=== PATIENT | female | born 1970 | race Caucasian/White ===

== ENCOUNTER 2017-10-23 23:53 | Emergency (ER) | payer BC ==
[2017-10-24] MEDS ORDERED: Albuterol/Ipratropium 3.0-0.5 MG/3 ML Neb Soln NEB ONE ×2 (00:02→03:15)
[2017-10-24] MEDS ORDERED: Sodium Chloride 0.9% 10 ML Syringe FLUSH PRN ×2 (00:12→01:18)
--- NOTE | 2017-10-24 00:53 | EDM.PDOC ---
ED HPI GENERAL MEDICAL PROBLEM - General Chief Complaint: Respiratory Problem Stated Complaint: [facility] Time Seen by Provider: 10/24/17 00:00 Source of Information: Reports: Patient, EMS History Limitations: Reports: No Limitations - History of Present Illness INITIAL COMMENTS - FREE TEXT/NARRATIVE: The patient went to bed tonight at around 10pm. She developed a cough and shortness of breath. Before that for a few days she did have some congestion and slight cough. She got into a coughing fit and had shortness of breath and chest tightness. She called 911 and when EMS got there her oxygen saturations were low in the 80s. She was given an albuterol treatment. She denies fever but she has chills. She has no abdominal pain, nausea or vomiting. She has no lung problems such as asthma or COPD. She does not smoke. Onset: Sudden Duration: Minutes: Location: Reports: Chest Quality: Reports: Other (Tightness) Severity: Mild Improves with: Reports: None Worsens with: Reports: None Associated Symptoms: Reports: Chest Pain, Cough, Fever/Chills, Shortness of Breath. Denies: Nausea/Vomiting Chest Pain Score (Numeric/FACES): 2 - Related Data Allergies Allergy/AdvReac Type Severity Reaction Status Date / Time mold Allergy Respiratory Verified 10/24/17 00:01 Distress Home Meds: Home Meds Albuterol [IJP: Ventolin HFA] 2 puff INH Q4HR PRN #18 gm 10/24/17 [Rx] Levofloxacin [Levaquin] 750 mg PO DAILY #5 tablet 10/24/17 [Rx] ED ROS GENERAL - Review of Systems Review Of Systems: See Below Constitutional: Reports: Chills. Denies: Fever HEENT: Reports: No Symptoms Respiratory: Reports: Shortness of Breath, Cough Cardiovascular: Reports: No Symptoms Endocrine: Reports: No Symptoms GI/Abdominal: Reports: No Symptoms : Reports: No Symptoms Musculoskeletal: Reports: No Symptoms Skin: Reports: No Symptoms ED EXAM, GENERAL - Physical Exam Exam: See Below Exam Limited By: No Limitations General Appearance: Alert, Mild Distress Ears: Normal External Exam Nose: Normal Inspection Head: Atraumatic, Normocephalic Neck: Normal Inspection Respiratory/Chest: Respiratory Distress (mild), Decreased Breath Sounds, Wheezing Cardiovascular: Regular Rate, Rhythm, No Edema, No Murmur GI/Abdominal: Soft, Non-Tender, No Organomegaly, No Mass Extremities: Normal Inspection Neurological: Alert, Oriented, No Motor/Sensory Deficits Course - Vital Signs Last Recorded V/S: Last Vital Signs Temp 97.8 F 10/23/17 23:56 Pulse 96 10/23/17 23:56 Resp 30 H 10/23/17 23:56 BP 165/99 H 10/23/17 23:56 Pulse Ox 95 10/24/17 03:15 - Orders/Labs/Meds Orders: Active Orders 24 hr Category Date Time Status EKG Documentation Completion [RC] ASDIRECTED Care 10/24/17 02:31 Active Peripheral IV Care [RC] . DIRECTED Care 10/24/17 00:12 Active RT Aerosol Therapy [RC] ASDIRECTED Care 10/24/17 00:02 Active RT Aerosol Therapy [RC] ASDIRECTED Care 10/24/17 03:15 Active Ang Chest [CT] Stat Exams 10/24/17 00:54 Taken CULTURE BLOOD [BC] Stat Lab 10/24/17 03:30 Received CULTURE BLOOD [BC] Stat Lab 10/24/17 03:40 Received Sodium Chloride 0.9% [Normal Saline] 100 ml Med 10/24/17 01:30 Active IV ASDIRECTED Sodium Chloride 0.9% [Saline Flush] Med 10/24/17 00:12 Active 10 ml FLUSH ASDIRECTED PRN Sodium Chloride 0.9% [Saline Flush] Med 10/24/17 01:18 Active 10 ml FLUSH ONETIME PRN Blood Culture x2 Reflex Set [OM.PC] Stat Oth 10/24/17 03:08 Ordered Peripheral IV Insertion Adult [OM.PC] Routine Oth 10/24/17 00:12 Ordered EKG 12 Lead [EK] Stat Ther 10/24/17 02:30 Ordered Medication Orders Sodium Chloride (Normal Saline) 100 mls @ 80 mls/hr IV ASDIRECTED SONIA Last Admin: 10/24/17 01:40 Dose: 80 mls/hr Sodium Chloride (Saline Flush) 10 ml FLUSH ASDIRECTED PRN PRN Reason: Keep Vein Open Last Admin: 10/24/17 01:23 Dose: 10 ml Sodium Chloride (Saline Flush) 10 ml FLUSH ONETIME PRN PRN Reason: IV FLUSH Last Admin: 10/24/17 01:40 Dose: 10 ml Labs: Laboratory Tests 10/24/17 10/24/17 10/24/17 Range/Units 00:20 00:20 00:20 WBC 11.58 H (3.98-10.04) K/mm3 RBC 4.83 (3.98-5.22) M/mm3 Hgb 14.0 (11.2-15.7) gm/L Hct 41.8 (34.1-44.9) % MCV 86.5 (79.4-94.8) fl MCH 29.0 (25.6-32.2) pg MCHC 33.5 (32.2-35.5) g/dl RDW Std Deviation 39.9 (36.4-46.3) fL Plt Count 312 (182-369) K/mm3 MPV 9.3 L (9.4-12.3) fl Neut % (Auto) 83.9 H (34.0-71.1) % Lymph % (Auto) 10.2 L (19.3-51.7) % Smith % (Auto) 4.6 L (4.7-12.5) % Eos % (Auto) 0.9 (0.7-5.8) Baso % (Auto) 0.2 (0.1-1.2) % Neut # (Auto) 9.72 H (1.56-6.13) K/mm3 Lymph # (Auto) 1.18 (1.18-3.74) K/mm3 Smith # (Auto) 0.53 H (0.24-0.36) K/mm3 Eos # (Auto) 0.11 (0.04-0.36) K/mm3 Baso # (Auto) 0.02 (0.01-0.08) K/mm3 D-Dimer, Quantitative 1.23 H (0.19-0.59) mg/L Sodium 145 (136-145) mEq/L Potassium 3.4 L (3.5-5.1) mEq/L Chloride 108 H (98-107) mEq/L Carbon Dioxide 24 (21-32) mEq/L Anion Gap 16.4 H (5-15) BUN 12 (7-18) mg/dL Creatinine 1.4 H (0.55-1.02) mg/dL Est Cr Clr Drug Dosing 45.50 mL/min Estimated GFR (MDRD) 40 (>60) mL/min BUN/Creatinine Ratio 8.6 L (14-18) Glucose 160 H (74-106) mg/dL Calcium 8.4 L (8.5-10.1) mg/dL Total Bilirubin 0.3 (0.2-1.0) mg/dL AST 13 L (15-37) U/L ALT 21 (14-59) U/L Alkaline Phosphatase 67 (46-116) U/L Total Protein 6.4 (6.4-8.2) g/dl Albumin 3.2 L (3.4-5.0) g/dl Globulin 3.2 gm/dL Albumin/Globulin Ratio 1.0 (1-2) Meds: Medications Generic Name Dose Route Start Last Admin Trade Name Freq PRN Reason Stop Dose Admin Sodium Chloride 100 mls @ 80 mls/hr 10/24/17 01:30 10/24/17 01:40 Normal Saline IV 80 mls/hr ASDIRECTED SONIA Administration Sodium Chloride 10 ml 10/24/17 00:12 10/24/17 01:23 Saline Flush FLUSH 10 ml ASDIRECTED PRN Administration Keep Vein Open Sodium Chloride 10 ml 10/24/17 01:18 10/24/17 01:40 Saline Flush FLUSH 10 ml ONETIME PRN Administration IV FLUSH Discontinued Medications Generic Name Dose Route Start Last Admin Trade Name Freq PRN Reason Stop Dose Admin Albuterol/Ipratropium 3 ml 10/24/17 00:02 10/24/17 00:13 Duoneb 3.0-0.5 Mg/3 Ml NEB 10/24/17 00:03 3 ml ONETIME ONE Administration Albuterol/Ipratropium 3 ml 10/24/17 03:15 10/24/17 03:24 Duoneb 3.0-0.5 Mg/3 Ml NEB 10/24/17 03:16 3 ml ONETIME ONE Administration Levofloxacin/Dextrose 750 mg/ 150 mls @ 100 mls/hr 10/24/17 03:08 10/24/17 03 :19 Premix IV 10/24/17 04:37 100 mls/hr ONETIME ONE Administration Iopamidol 50 ml 10/24/17 01:18 10/24/17 01:40 Isovue-370 (76%) IVPUSH 10/24/17 01:19 50 ml ONETIME ONE Administration Iopamidol 100 ml 10/24/17 01:18 10/24/17 01:40 Isovue-370 (76%) IVPUSH 10/24/17 01:19 100 ml ONETIME ONE Administration - Re-Assessments/Exams Free Text/Narrative Re-Assessment/Exam: 10/24/17 00:53 I ordered an IV saline lock, oxygen, duoneb, labs, CXR and solu-medrol 125mg IV. 10/24/17 02:52 When my nurse got the patient up to the bathroom her oxygen saturations went down into the 60s. She was put right back on the oxygen. She did better after the treatments and solu-medrol. Her D-dimer was elevated at 1.23. I canceled the CXR and ordered a CT angio of her lungs. Her WBC was elevated at 11.58. Her K was a little low at 3.4. Her creatinine was elevated at 1.4. Her glucose was elevated at 160. Her CT shows no PE. Diffuse ground glass and dense consolidation with involvement of the right upper, middle and lower lobes and left lower lobe. Consider atypical multilobar pneumonia, pulmonary edema, pulmonary hemorrhage, acute hypersensitivity reaction, drug reaction, acute eosinophilic pneumonia. High density material is present within the stomach possibly contrast. Alternatively this may represent an ingested calcific substance. A gastric bleed cannot be excluded. Mildly enlarged lymph nose with the AP window. Mid cardiomegaly. Cholelithiasis. The patient feels better. She would like to go home. I feel she needs to be admitted. I turned the oxygen off and she went down to 78% saturation. I put her back on oxygen and I ordered another duoneb, cultures and levaquin. She will hand out for awhile and take the antibiotics. 10/24/17 03:15 I did an EKG that shows a LBBB. 10/24/17 06:32 She is off the oxygen now. She does not want to stay. I will discharge her home on levaquin and albuterol. She is to return if she is worse. Departure - Departure Time of Disposition: 06:35 Disposition: Home, Self-Care 01 Condition: Good Clinical Impression: Hypoxia Pneumonia Qualifiers: Pneumonia type: due to unspecified organism Laterality: bilateral Lung location : unspecified part of lung Qualified Code(s): J18.9 - Pneumonia, unspecified organism - Discharge Information Prescriptions: Albuterol [IJP: Ventolin HFA] 2 puff INH Q4HR PRN #18 gm PRN Reason: Shortness Of Breath Levofloxacin [Levaquin] 750 mg PO DAILY #5 tablet Referrals: PCP,None [Primary Care Provider] - Angelito Sanders [Physician] - Forms: ED Department Discharge Additional Instructions: Take the levaquin daily for 5 days. Use the albuterol 2 puffs every 4 hours as needed for shortness of breath. Follow up with your doctor this week or follow up with Dr Sanders in our clinic. Please return if you are worse. - My Orders Last 24 Hours: My Active Orders 10/24/17 00:02 RT Aerosol Therapy [RC] ASDIRECTED 10/24/17 00:12 Peripheral IV Care [RC] . DIRECTED Sodium Chloride 0.9% [Saline Flush] 10 ml FLUSH ASDIRECTED PRN Peripheral IV Insertion Adult [OM.PC] Routine 10/24/17 00:54 Ang Chest [CT] Stat 10/24/17 01:18 Sodium Chloride 0.9% [Saline Flush] 10 ml FLUSH ONETIME PRN 10/24/17 01:30 Sodium Chloride 0.9% [Normal Saline] 100 ml IV ASDIRECTED 10/24/17 02:30 EKG 12 Lead [EK] Stat 10/24/17 02:31 EKG Documentation Completion [RC] ASDIRECTED 10/24/17 03:08 Blood Culture x2 Reflex Set [OM.PC] Stat 10/24/17 03:15 RT Aerosol Therapy [RC] ASDIRECTED 10/24/17 03:30 CULTURE BLOOD [BC] Stat 10/24/17 03:40 CULTURE BLOOD [BC] Stat - Assessment/Plan Last 24 Hours: My Active Orders 10/24/17 00:02 RT Aerosol Therapy [RC] ASDIRECTED 10/24/17 00:12 Peripheral IV Care [RC] . DIRECTED Sodium Chloride 0.9% [Saline Flush] 10 ml FLUSH ASDIRECTED PRN Peripheral IV Insertion Adult [OM.PC] Routine 10/24/17 00:54 Ang Chest [CT] Stat 10/24/17 01:18 Sodium Chloride 0.9% [Saline Flush] 10 ml FLUSH ONETIME PRN 10/24/17 01:30 Sodium Chloride 0.9% [Normal Saline] 100 ml IV ASDIRECTED 10/24/17 02:30 EKG 12 Lead [EK] Stat 10/24/17 02:31 EKG Documentation Completion [RC] ASDIRECTED 10/24/17 03:08 Blood Culture x2 Reflex Set [OM.PC] Stat 10/24/17 03:15 RT Aerosol Therapy [RC] ASDIRECTED 10/24/17 03:30 CULTURE BLOOD [BC] Stat 10/24/17 03:40 CULTURE BLOOD [BC] Stat
[2017-10-24] MEDS ORDERED: Iopamidol 755 Mg/ML 100 ML Bottle IVPUSH ONE (01:18)
[2017-10-24] MEDS ORDERED: Iopamidol 755 MG/ML 50 ML Bottle IVPUSH ONE (01:18)
[2017-10-24] MEDS ORDERED: Sodium Chloride 0.9% 100 ML IV SCH (01:30)
[2017-10-24] MEDS ORDERED: Levofloxacin/Dextrose 5%-Water 750 MG in Premix Bag 1 BAG IV ONE (03:08)
--- NOTE | 2017-10-24 08:34 | CT ---
CT chest Technique: Multiple axial sections were obtained through the chest. Intravenous contrast was utilized. Study has been performed as a pulmonary angiogram protocol. Comparison: No prior chest CT or chest x-ray. Findings: Pulmonary arteries are well-opacified. No filling defects are seen to indicate pulmonary embolism. Diffuse parenchymal density is noted within the right upper lung and right lower lung. Mild increased density is also seen within the right middle lobe. Slight parenchymal density within the left lower lung is seen. 1.7 cm lymph node seen within the AP window. No additional adenopathy is seen. Heart size appears slightly enlarged. Large calcified gallstone is noted within the gallbladder neck measuring 1.8 cm. Scattered degenerative endplate spurring is noted within the spine. Minimal right-sided pleural effusion is seen. Impression: 1. Diffuse parenchymal density throughout the right chest as well as lesser density within the left lower lung. Differential includes multifocal pneumonia as well as asymmetric pulmonary edema. Differential is otherwise fairly extensive. 2. No findings of pulmonary embolism. 3. Minimal right-sided pleural effusion. 4. 1.8 cm gallstone within the gallbladder neck. 5. Mildly enlarged lymph node within the left AP window which is likely incidental as no other adenopathy seen within the mediastinum. Diagnostic code #5 I agree with preliminary report issued by [facility] [employer] ([facility] report finalized on 10/24/17, 3:14 AM Central Time)
== END 2017-10-24 06:50 | disposition home or self-care (01) ==
LOC: JD.ED 23:53
DX: J18.9 Pneumonia, unspecified organism (principal); R09.02 Hypoxemia
CPT/HCPCS: 36415; 71275; 80053; 85025; 85379; 87040; 87804; 93005; 94640; 96365; 96366; 99285; J1956; J7030; J7050; Q9967; 93010; 99284-25